=== PATIENT | male | born 1955 | race American Indian/Alaskan Native ===

== ENCOUNTER 2018-08-11 15:10 | Outpatient (CLI) | payer OTHER ==
--- NOTE | 2018-08-11 20:20 | XRay Report ---
PROCEDURE: 2 view left knee series TECHNIQUE: AP and lateral view of the left knee was obtained. HISTORY: PAIN IN UNSPECIFIED KNEE COMPARISONS: None FINDINGS: No evidence of fracture or dislocation. Small joint effusion is visualized. Moderate size marginal os teophytic spurs project from the medial aspect of the medial compartment of the knee. Marginal osteop hytic spurs also project in the patellofemoral joint space. Lateral compartment of the knee is fairly well preserved. IMPRESSION: Moderate osteoarthritic changes medial compartment of the knee and patellofemoral joint space. Small joint effusion is present. No other abnormalities are identified.. This document is electronically signed by Nehemiah Medrano MD., August 11 2018 08:19:13 PM ET
== END 2018-08-11 15:11 | disposition home or self-care (01) ==
LOC: XRAY 15:10
PROVIDERS: ATTEND Orthopaedic Surgery
DX: M17.12 Unilateral primary osteoarthritis, left knee (principal); M25.462 Effusion, left knee